=== PATIENT | female | born 1985 | race Caucasian/White ===

== ENCOUNTER → 2023-05-06 | Outpatient (CLI) | payer BC | LOC: RAD 07:07 | DX: N63.20 Unspecified lump in the left breast, unspecified quadrant (principal) ==

== ENCOUNTER → 2023-10-29 | Outpatient (CLI) | payer BC | LOC: MAMMO 07:00 | DX: R92.8 Other abnormal and inconclusive findings on diagnostic imaging of breast (principal) ==